=== PATIENT | female | born 1995 | race Hispanic/Latino ===

== ENCOUNTER 2018-04-25 21:00 | Emergency (ER) | payer OTHER ==
[2018-04-25 21:20] VITALS: BMI 29.5
[2018-04-25] MEDS ORDERED: Lactated Ringer's 1,000 ML IV ONE (21:21)
[2018-04-25] MEDS ORDERED: Betamethasone Soluspan 30 mg/5mL Inj Susp IM ONE (21:59)
[2018-04-25] MEDS ORDERED: Simethicone 80 mg Chewtab PO ONE (22:52)
[2018-04-25 23:14] LABS: SQUAMOUS EPITHIAL 12 /hpf (0-5); URINE BACTERIA OCC (<OCC); URINE BILIRUBIN NEGATIVE (NEGATIVE); URINE BLOOD 1+ (NEGATIVE); URINE CLARITY Hazy (Clear); URINE COLOR Yellow (YELLOW); URINE GLUCOSE (UA) NORMAL (Normal); URINE LEUKOCYTE ESTERASE 1+ Leu/uL (Negative); URINE PROTEIN 1+ mg/dL (NEGATIVE)
--- NOTE | 2018-04-25 23:31 | OBHP ---
Datetime: 04/25/2018 22:16 IP Adm Impression: , intrauterine ; No Active Labor; Intact Membranes IP Chief Complaint Other: Increased gas IP Admit Plan: Observation/Evaluation Admit Comment, IP Provider: 22 yo female G1 with an IUP at 34.3 weeks and presents with c/o of low a bdominal cramping, increased frequency of urinaton, increase bowel gas. Admits to adequate FM and den ies LOF, V or VD. PMHx Negative PSHx Laparoscopic excision of ovarian cyst Meds PNV NKDA Social denies x 3 A/P Irregular Cx's that ressolved with IV Hydration Received Simethicone for gas pains UA sent and results pending NST Reactive Continue Observation and cotinuous monitoring Pelvic Type - PN: Adequate Extremities - PN: Normal Abdomen - PN: Normal Back - PN: Normal Breast - PN: Not Done Lungs - PN: Normal Heart - PN: Normal Thyroid - PN: Normal Neurologic - PN: Normal HEENT - PN: Normal General - PN: Normal Presentation-Admit: Vertex FHR - Baseline A Provider: 140 Membranes, Provider: Intact Contraction Comments Provider: Irregular Gestation - Est Wks by US: 34.3 IP Hx Assessment: No PNC records available EGA AdmitDate IP: 34.3 Vital Signs Provider: Reviewed IP Chief Complaint: Uterine contractions; Signs/symptoms UTI; Maternal discomfort; Other NICHD Variability Prov Fetus A: Moderate 6-25bpm NICHD Accel Fetus A IP Provider: 10X10 FHR Category Provider Fetus A: Category I NICHD Decel Fetus A IP Provider: None Dilatation, Provider: 0 Effacement, Provider: 0 Station, Provider: -3 Genitourinary Exam: Normal DTRs - PN: Normal
--- NOTE | 2018-04-25 23:32 | OBDCSUM ---
Datetime: 04/25/2018 23:29 Discharged to, Provider: Home Follow up at, Provider: Clinic Disch Instr Activity: Normal activity Disch Instr Diet: Regular Discharge Instructions, Provider: Routine instructions given Discharge Diagnosis, Provider: False Labor - Undelivered Discharge Time: 04/25/2018 23:50 Follow up in weeks, Provider: scheduled appointment Contraception discussed, Prov: Yes Disch Activity Restrictions: No exercising; No lifting; Minimize stair-climbing; No sexual activity; Nothing in vagina - [place], tampons, douche Discharge Comment, Provider: 22 yo female G1 with an IUP at 34.3 weeks and presents with c/o of low abdominal cramping, increased frequency of urinaton, increase bowel gas. Admits to adequate FM and de nies LOF, V or VD. PMHx Negative PSHx Laparoscopic excision of ovarian cyst Meds PNV NKDA Social denies x 3 A/P Irregular Cx's that ressolved with IV Hydration Received Simethicone for gas pains UA sent and results pending NST Reactive Continue Observation and cotinuous monitoring Discharge Diagnosis Prov Other: Increased frequency of urination Pelvic cramping Contraception after Delivery: Undecided
[2018-04-26 04:33] VITALS: BP 112/68; PULSE 119; RESP 20; TEMP 98.3
== END 2018-04-26 00:15 | disposition home or self-care (01) ==
LOC: C.EROB 21:00
DX: O26.893 Other specified pregnancy related conditions, third trimester (principal); R10.30 Lower abdominal pain, unspecified; R35.0 Frequency of micturition; Z3A.34 34 weeks gestation of pregnancy
CPT/HCPCS: 81001; 82731; 99283; J0702; J7120

== ENCOUNTER 2018-04-26 11:19 | Emergency (ER) | payer OTHER ==
[2018-04-25 21:20] VITALS: BMI 29.5
[2018-04-26] MEDS ORDERED: Betamethasone Soluspan 30 mg/5mL Inj Susp IM ONE (12:30)
[2018-04-26 13:22] LABS: SQUAMOUS EPITHIAL 3 /hpf (0-5); URINE BILIRUBIN NEGATIVE (NEGATIVE); URINE CLARITY Clear (Clear); URINE COLOR Yellow (YELLOW); URINE GLUCOSE (UA) NORMAL (Normal); URINE LEUKOCYTE ESTERASE NEG Leu/uL (Negative); URINE PROTEIN 1+ mg/dL (NEGATIVE)
[2018-04-26 13:23] LABS: URINE BLOOD TRACE (NEGATIVE)
--- NOTE | 2018-04-26 17:43 | OBHP ---
Datetime: 04/26/2018 12:17 IP Adm Impression: , intrauterine IP Chief Complaint Other: Beta-methasone injection IP Admit Plan: Discharge home Admit Comment, IP Provider: 22 year old female at 34.4 weeks gestation dated via LMP on 08/27/17 with LORI of 06/03/17 who presents for betamethasone injection recommended during OB ED visit on 04/25 for contractions. Patient was given IV fluids and contractions resolved at that time. She denies any additional contractions since coming to OB ED yesterday. Patient reports adequate movement. Roosevelt kemp denies vaginal bleeding and leakage of fluid. She does admit to occassional upper abdominal huang n with eating that resolves within a few minutes on its own. 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 Hx of gonorrhea and chlamydia treated at beginning of . Last coitus was one month ago. H x of R ovarian cyst, removed. Denies hx of fibroids. PMHx: Denies PSHx: R ovarian cyst removal, 2012 Medications: PNV Allergies: NKDA Family Hx: Mother, 42 years old, living, hx of arthritis; Father, 41 years old, living, no PMHx. Social Hx: Denies tobacco, alcohol and drugs during . Patient is not . Baby's fat her is present and they have been in a relationship for 2 years. Patient lives with her mother. 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 Assessment and plan: 22 year old female at 34.4 weeks gestation for steroid injection due to threatened pre-term l abor -Betamethasone 12mg IM -Patient to return for 2nd dose tomorrow -04/26 US done at [facility] on [place] reviewed: overall biometry measuring in the 33rd percentile. RT renal pelvis measures 0.76cm and continues to be slightly dilated for this GA. LT measures 0.63 and is WNL for this GA. ISAIAS is WNL. Good tone and movements observed. Recommend growth in 4 w eeks. Recommend weekly BPP. (see full report) -04/25 fibronectin negative -04/25 UA: 1+ blood, 1+ LE, 1+ protein, 1+ketones, Occ bacteria, 12 epithelial cells -Repeat UA: 1+ protein, 2+ ketones, trace blood, LE negative -Outpatient 24 hour urine collection to start on 04/30 and return to [facility] on 05/01 -Refrain from sexual activity until 37 weeks gestation -Patient stable for discharge -Instructions explained, patient was given the opportuntiy to ask questions and expressed understa nding Case discussed with Dr. Bob. Tiny Ugalde, PGY-1 Attending Note: patient seen, evaluated, examined and counseled by me. I agree with the documentat ion of events as above. Patient is clincally stable upon discharge. Pelvic Type - PN: Not Done Extremities - PN: Normal Abdomen - PN: Normal Back - PN: Normal Breast - PN: Not Done Lungs - PN: Normal Heart - PN: Normal Thyroid - PN: Not Done Neurologic - PN: Normal HEENT - PN: Normal General - PN: Normal FHR - Baseline A Provider: 130 Contraction Comments Provider: occassional Comments, ACOG Physical Exam: Abdomen: Gravid, normal bowel sounds, uterine fundus at 34cm Cardio: Mildly tachycardic, regular rate, no M/R/G Gestation - Est Wks by US: 34.4 EGA AdmitDate IP: 34.4 Vital Signs Provider: Reviewed; Within Normal Limits Vital Signs Provider Details: HR: 100 IP Chief Complaint: Other NICHD Variability Prov Fetus A: Moderate 6-25bpm NICHD Accel Fetus A IP Provider: 15X15 FHR Category Provider Fetus A: Category I NICHD Decel Fetus A IP Provider: None Dilatation, Provider: 0 Effacement, Provider: 0 Station, Provider: -3 Genitourinary Exam: Not Done DTRs - PN: Not Done
[2018-04-26 18:00] VITALS: BP 111/65; PULSE 99
== END 2018-04-26 13:45 | disposition home or self-care (01) ==
LOC: C.EROB 11:19
DX: O60.03 Preterm labor without delivery, third trimester (principal); Z3A.34 34 weeks gestation of pregnancy
CPT/HCPCS: 81001; 96372; 99283; J0702

== ENCOUNTER 2018-04-27 12:43 | Emergency (ER) | payer OTHER ==
[2018-04-27] MEDS ORDERED: Betamethasone Soluspan 30 mg/5mL Inj Susp IM ONE (12:55)
[2018-04-27] MEDS ORDERED: Lactated Ringer's 1,000 ML IV ONE (13:16)
[2018-04-27] MEDS ORDERED: Lactated Ringer's 1,000 ML IV SCH (13:30)
[2018-04-27 13:54] LABS: BASO # 0.1 K/uL (0.0-0.2); BASO % 1.1 % (0.0-2.0); EOS % 0.1 % (0.0-4.0); HEMOGLOBIN 10.9 g/dL (11.0-16.0); LYMPH % 14.6 % (20.0-40.0); MEAN CELL VOLUME 78.3 fL (81.0-99.0); MEAN CORPUSCULAR HEMOGLOBIN 25.3 pg (27.0-31.0); MEAN CORPUSCULAR HGB CONC 32.3 g/dL (33.0-37.0); MEAN PLATELET VOLUME 9.5 fL (7.2-11.7); MONO # 0.4 K/uL (0.0-0.8); MONO % 6.7 % (0.0-10.0); NEUT % 77.5 % (50.0-75.0); RBC 4.32 Mil/uL (3.80-5.20); RED CELL DISTRIBUTION WIDTH 13.6 % (11.5-14.5); WHITE BLOOD COUNT 6.5 K/uL (4.8-10.8)
[2018-04-27 13:56] LABS: SQUAMOUS EPITHIAL 12 /hpf (0-5); URINE BACTERIA RARE (<OCC); URINE BILIRUBIN NEGATIVE (NEGATIVE); URINE BLOOD NEGATIVE (NEGATIVE); URINE CLARITY Hazy (Clear); URINE COLOR Amber (YELLOW); URINE GLUCOSE (UA) NORMAL (Normal); URINE LEUKOCYTE ESTERASE 1+ Leu/uL (Negative); URINE PROTEIN 1+ mg/dL (NEGATIVE)
[2018-04-27 14:10] LABS: ALB/GLOB RATIO 1.1 (1.0-2.1); ALBUMIN 3.7 g/dL (3.5-5.0); ALT/SGPT 20 U/L (9-52); AST/SGOT 22 U/L (14-36); BLOOD UREA NITROGEN 9 mg/dL (7-17); GFR NON-AFRICAN AMERICAN > 60
--- NOTE | 2018-04-27 14:40 | OBHP ---
Datetime: 04/27/2018 13:08 IP Adm Impression: , intrauterine ; No Active Labor; Intact Membranes IP Chief Complaint Other: betamethasone injection IP Admit Plan: Admit to unit; Observation/Evaluation Admit Comment, IP Provider: 22 year old female at 34.5 weeks gestation dated via LMP on 08/27/17 with LORI of 06/03/17 who presents for 2nd betamethasone injection recommended for contractions experi enced on 04/25/18. Patient states contractions resolved with IV hydration in the OB ED. She denies an y additional contractions since. Patient reports adequate movement. Patient denies vaginal blee ding and leakage of fluid. 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 Last coitus was one month ago. Hx of R ovarian cyst, removed. Denies hx of fibroids. PMHx: Denies PSHx: R ovarian cyst removal, 2012 Medications: PNV Allergies: NKDA Family Hx: Mother, 42 years old, living, hx of arthritis; Father, 41 years old, living, no PMHx. Social Hx: Denies tobacco, alcohol and drugs during . Patient is not . Baby's fat her is present in her life and they have been in a relationship for 2 years. Patient lives with her m other. 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 labs: HepB negative 11/07/17 HIV non reactive 11/07/17 RPR non reactive 11/07/17 Rubella immune Assessment and plan: 22 year old female at 34.5 weeks gestation for steroid injection due to threatened pre-term l abor -admit to unit for pre-term labor -Mild tachycardia and variable deccelerations -non-reassuring heart tones on admission -Drinks little to no water and suspected dehydration -IV fluids given and after an infusion of about 800 mls, her FHT's became reactive and improved. B aseline 130 and accelerations to 150-160 -Betamethasone 12mg IM ( 2nd dose) -Admission labs ordered and sent -04/26 US done at [facility] on [address] reviewed: overall biometry measuring in the 33rd percentile. RT renal pelvis measures 0.76cm and continues to be slightly dilated for this GA. LT measures 0.63 and is WNL for this GA. ISAIAS is WNL. Good tone and movements observed. Recommend growth in 4 w eeks. Recommend weekly BPP. (see full report) Continue prolonged monitoring and will consider a BPP in about 1 hour Case discussed with Dr. Masters. Tiny Ugalde, PGY-1 Pelvic Type - PN: Adequate Extremities - PN: Normal Abdomen - PN: Normal Back - PN: Normal Breast - PN: Not Done Lungs - PN: Normal Heart - PN: Abnormal Thyroid - PN: Not Done Neurologic - PN: Normal HEENT - PN: Normal General - PN: Normal Presentation-Admit: Vertex FHR - Baseline A Provider: 145 Membranes, Provider: Intact Contraction Comments Provider: occassional Comments, ACOG Physical Exam: Cardio: Mildly tachycardic, normal S1, S2, no M/R/G Abdomen: Gravid, non-tender, fundus at 33cm Gestation - Est Wks by US: 34.5 IP Hx Assessment: The History has been Reviewed and is Current EGA AdmitDate IP: 34.5 Vital Signs Provider: Reviewed Vital Signs Provider Details: HR: 105 IP Chief Complaint: evaluation; Other NICHD Variability Prov Fetus A: Moderate 6-25bpm NICHD Accel Fetus A IP Provider: 15X15 FHR Category Provider Fetus A: Category II NICHD Decel Fetus A IP Provider: Variable Dilatation, Provider: 1 Effacement, Provider: 80 Station, Provider: -3 Genitourinary Exam: Normal DTRs - PN: Not Done
--- NOTE | 2018-04-27 16:57 | US ---
Indication: 34.5 weeks, non-reactive heart tones Comparison: None available Technique: Real-time ultrasound was performed through the pelvis. Findings: There is a single living fetus in cephalic presentation. Amniotic fluid volume is within normal limits. Anterior placenta. The placenta is not previa. There are no adnexal masses or cysts evident. Cervix length measures approximately 3.4 cm. The study was performed for the emergent evaluation of nonreactive heart tones, and the whole anatomic survey of the fetus was not performed. Limited visualized anatomy appears grossly unremarkable. Measurements and calculations: Fetus has a composite sonographic age of 34 weeks 4 days. This calculation is based on the biparietal diameter, head circumference, abdominal circumference, and femur length. Estimated heart rate 124 beats per min. Estimated weight 2504 g. Biophysical profile: movements 2/2 breathing 2/2 tone 2/2 Amniotic fluid 2/2 Total score impression: 12/20 Impression: Single living fetus with a composite sonographic age of 34 weeks 4 days. Estimated heart rate 124 beats per min. Biophysical profile of 8 out of 8.
--- NOTE | 2018-04-27 20:01 | OBDCSUM ---
Datetime: 04/27/2018 17:00 Discharged to, Provider: Home Follow up at, Provider[place] [facility] Activity: Normal activity Disch Instr Diet: Regular Discharge Instructions, Provider: Routine instructions given Discharge Time: 04/27/2018 17:10 Follow up in weeks, Provider: 5-7 days Disch Referrals: None Disch Activity Restrictions: No exercising; No lifting; No sexual activity; Nothing in vagina - Inte rcourse, tampons, douche Discharge Comment, Provider: 22 year old female at 34.5 weeks gestation dated via LMP on 8 with LORI of 06/03/17 who presents for 2nd betamethasone injection recommended after contractions exp erienced on 04/25/18. Patient states contractions resolved with IV hydration in the OB ED. She denies any additional contractions since. Patient reports adequate movement. Patient denies vaginal b leeding and leakage of fluid. 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 Last coitus was one month ago. Hx of R ovarian cyst, removed. Denies hx of fibroids. PMHx: Denies PSHx: R ovarian cyst removal, 2012 Medications: PNV Allergies: NKDA Family Hx: Mother, 42 years old, living, hx of arthritis; Father, 41 years old, living, no PMHx. Social Hx: Denies tobacco, alcohol and drugs during . Patient is not . Baby's fat her is present in her life and they have been in a relationship for 2 years. Patient lives with her m other. 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 labs: HepB negative 11/07/17 HIV non reactive 11/07/17 RPR non reactive 11/07/17 Rubella immune Assessment and plan: 22 year old female at 34.5 weeks gestation for steroid injection due to threatened pre-term l abor - Mild uterine contractions noted on monitor and SVE with + change from exam on 04/25/18 - Tachycardia with Variable deccelerations but adequate Variability and Reactivity -admit to unit for pre-term labor and NRFHT's -Drinks little to no water and suspected dehydration -IV fluids given and after an infusion of about 1L, her FHT's became reactive and improved. Basel ine 130 and accelerations to 150-160 -Betamethasone 12mg IM ( 2nd dose) -Admission labs ordered and sent -04/26 US done at [facility] on [place] reviewed: overall biometry measuring in the 33rd percentile. RT renal pelvis measures 0.76cm and continues to be slightly dilated for this GA. LT measures 0.63 and is WNL for this GA. ISAIAS is WNL. Good tone and movements observed. Recommend growth in 4 w eeks. Recommend weekly BPP. (see full report) BPP done and / ISAIAS 14 Uterine contractions ressolved with IV Hydration Severe Dehydration and pt drinks little to no water despite counseling on 04/25/ visit Tachycardia and Variable also ressolved after IV Hydration All other labs WNL [facility] recommended weekly BPP's and next one scheduled for 05/04, per patient Advised to increase po water intake and to f/up in her Clinic in 5-7 days. Labor precautions reviewed with patient and verbalized understanding D/C home with instructions and in Stable and Satisfactory condition. Discharge Diagnosis Prov Other: Contractions Severe Dehydration Tachycardia Contraception after Delivery: Not Planning to Use
== END 2018-04-27 17:10 | disposition home or self-care (01) ==
LOC: C.EROB 12:43 → UNDOADMIN 14:04 → C.4D 14:04 → C.EROB 17:10 → UNDODISIN 17:21
DX: O47.03 False labor before 37 completed weeks of gestation, third trimester (principal); E86.0 Dehydration; Z3A.34 34 weeks gestation of pregnancy
CPT/HCPCS: 76815; 76818; 80053; 81001; 85025; 86592; 86703; 86850; 86900; 96372; 99283; J0702; J7120